=== PATIENT | female | born 1950 | race Caucasian/White ===

== ENCOUNTER → 2020-06-05 | Outpatient (CLI) | payer MEDICARE, OTHER ==
[~2020-06-05] MED LIST: ALBU90OI INH; CAL MAG ZINC +1 EACH; CITRACAL + D E1 EACH PO; DESL5 PO; FLUT110OIA INH; OMEP20ER PO; SERT50 PO; SIMV5; URSO300 PO
[2020-06-07 15:38] LABS: CORONAVIRUS (COVID19) CSH-NRL Negative (Negative)
== END ==
LOC: LAB SHORT 10:30
PROVIDERS: Physician Assistant
DX: Z20.828 Contact with and (suspected) exposure to other viral communicable diseases (principal)
CPT/HCPCS: U0003

== ENCOUNTER → 2021-07-16 | Outpatient (CLI) | payer MEDICARE, OTHER ==
[2021-07-16 13:53] LABS: Source, Urine Clean Catch
[2021-07-16 15:07] LABS: Amorphous Heavy (0-Heavy); Bacteria Many /hpf; Squamous Epithelial Cells Few /hpf (Few)
[2021-07-16 15:08] LABS: Mucus Heavy (0-Heavy)
== END ==
LOC: LAB SHORT 09:20
PROVIDERS: Physician Assistant Medical
DX: N94.9 Unspecified condition associated with female genital organs and menstrual cycle (principal)
CPT/HCPCS: 81015

== ENCOUNTER → 2021-07-30 | Outpatient (CLI) | payer MEDICARE, OTHER ==
[2021-07-31 10:39] LABS: Candida species (DNA Probe) Negative (NEGATIVE); G. vaginalis (DNA Probe) Negative (NEGATIVE); T. vaginalis (DNA Probe) Negative (NEGATIVE)
== END ==
LOC: LAB SHORT 11:00 → LAB 11:00
PROVIDERS: Family Medicine
DX: N89.8 Other specified noninflammatory disorders of vagina (principal)
CPT/HCPCS: 87480; 87510; 87660

== ENCOUNTER 2021-08-20 09:31 | Day surgery (SDC) | payer MEDICARE, OTHER ==
[~2021-08-20] VITALS: Ht 167.6 cm; Wt 61.5 kg
--- NOTE | 2021-08-20 11:54 | NUR ---
08/20/21 1154 [place] OLIVERIO SON WAS PRESENT TO HEAR DISCHARGE INSTRUCTIONS AND SPOKE WITH DR QUEVEDO
== END 2021-08-20 11:51 | disposition home or self-care (01) ==
LOC: ORSCSDS 09:31
PROVIDERS: Ophthalmology
PROC: 08RK3JZ Replacement of Left Lens with Synthetic Substitute, Percutaneous Approach (ICD-10-PCS; principal; 2021-08-20 11:00)
DX: H25.13 Age-related nuclear cataract, bilateral (principal); J45.909 Unspecified asthma, uncomplicated; E11.9 Type 2 diabetes mellitus without complications; Z79.899 Other long term (current) drug therapy; K21.9 Gastro-esophageal reflux disease without esophagitis; F03.90 Unspecified dementia, unspecified severity, without behavioral disturbance, psychotic disturbance, mood disturbance, and anxiety
CPT/HCPCS: J2001; J2250; J2704; J3010; J3301; J7040; V2632

== ENCOUNTER 2021-09-10 07:59 | Day surgery (SDC) | payer MEDICARE, OTHER ==
[~2021-09-10] VITALS: Ht 167.6 cm; Wt 62.6 kg
--- NOTE | 2021-09-10 09:51 | NUR ---
Ambulatory in Day Surgery WITH FAMILY PT HAS DEMENTIA. History, Chart, Medications and Allergies reviewed before start of procedure.Lungs clear T/O to Auscultation. Patient confirms NPO status and agrees with scheduled surgery. Pre-Op teaching done. Pt verbalizes understanding. Patient States Post-Procedure ride home has been arranged.
--- NOTE | 2021-09-10 10:20 | NUR ---
09/10/21 1020 Mary Carmen Darnell NO PREOP ANTIBIOTICS ORDERED PER .
--- NOTE | 2021-09-10 12:56 | NUR ---
REVIEWED DC INSTRUCTIONS WITH PATIENT'S DAUGHTER PRIOR TO DC. SHE VERBALIZED UNDERSTANDING OF ALL. PRINTED COPY GIVEN FOR ASSISTED LIVING FACILITY WELL. PT IV DC TIP INTACT. PT VOIDED LARGE AMOUNT PRIOR TO DC. DAUGHTER DRIVING PATIENT BACK TO [facility] - DC VIA WC.
== END 2021-09-10 23:23 | disposition home or self-care (01) ==
LOC: ORSCMMR 07:59 → ORD 09:45 → ORSCMMR 09:45
PROVIDERS: Obstetrics & Gynecology
PROC: 0UDB8ZX Extraction of Endometrium, Via Natural or Artificial Opening Endoscopic, Diagnostic (ICD-10-PCS; principal; 2021-09-10 09:45)
PROC: 0UB98ZX Excision of Uterus, Via Natural or Artificial Opening Endoscopic, Diagnostic (ICD-10-PCS; principal; 2021-09-10 09:45)
DX: N85.8 Other specified noninflammatory disorders of uterus (principal); N84.0 Polyp of corpus uteri; N88.2 Stricture and stenosis of cervix uteri; F03.90 Unspecified dementia, unspecified severity, without behavioral disturbance, psychotic disturbance, mood disturbance, and anxiety; J45.909 Unspecified asthma, uncomplicated; E78.5 Hyperlipidemia, unspecified; Z79.899 Other long term (current) drug therapy
CPT/HCPCS: 82947; 88305; A9270; J0461; J1100; J2405; J2704; J3010; J7120

== ENCOUNTER 2023-06-02 10:08 | Emergency (ER) | payer MEDICARE, OTHER ==
[~2023-06-02] VITALS: Ht 172.7 cm; Wt 63.5 kg
[2023-06-02 10:34] LABS: BASOPHILS ABSOLUTE AUTO 0.04 K/mm3 (0.00-0.23); BASOPHILS PERCENT AUTO 1 % (0-2); EOSINOPHILS ABSOLUTE AUTO 0.06 K/mm3 (0.00-0.68); EOSINOPHILS PERCENT AUTO 1 % (0-6); Hematocrit 38.2 % (33.0-51.0); Hemoglobin 12.5 g/dL (11.5-16.0); IMMATURE GRAN ABSOLUTE AUTO 0.02 K/mm3 (0.00-0.10); IMMATURE GRAN PERCENT AUTO 0 % (0-1); LYMPHOCYTES ABSOLUTE AUTO 3.08 K/mm3 (0.84-5.20); LYMPHOCYTES PERCENT AUTO 46 % (21-46); MONOCYTES ABSOLUTE AUTO 0.38 K/mm3 (0.16-1.47); MONOCYTES PERCENT AUTO 6 % (4-13); Mean Corpuscular HGB Conc 32.7 g/dL (31.5-36.5); Mean Corpuscular Volume 92 fL (80-100); Mean Platelet Volume 12.2 fL (9.1-12.4); NEUTROPHILS PERCENT AUTO 46 % (41-73); Platelet Count 204 K/mm3 (150-400); RDW Coefficient Variation 13.2 % (11.7-14.2); RDW Standard Deviation 44.3 fL (35.1-46.3); Red Blood Cell Count 4.16 M/mm3 (3.80-5.20); White Blood Cell Count 6.68 K/mm3 (4.00-11.30)
[2023-06-02 10:53] LABS: Albumin, Blood 3.1 g/dL (3.4-5.0); Albumin/Globulin Ratio 0.9 (0.8-1.8); Bilirubin, Total 0.4 mg/dL (0.1-1.0); Bun/Creatinine Ratio 25.7 (12.0-20.0); Calcium, Blood 8.5 mg/dL (8.5-10.1); Creatinine, Blood 1.01 mg/dL (0.40-1.00); Globulin, Blood 3.4 g/dL (2.2-4.0); Total Protein, Blood 6.5 g/dL (6.4-8.2)
[2023-06-02 11:03] LABS: Source, Urine Fem Cath
[2023-06-02 11:16] LABS: Appearance, Urine Clear (Clear); Bilirubin, Urine Neg (Neg); Blood, Urine Neg (Neg); Color, Urine Yellow (P-Yellow); Glucose Qualitative, Urine Neg (Neg); Ketones, Urine Neg (Neg); Leukocyte Esterase, Urine 2+ (Neg); Nitrite, Urine Neg (Neg); Protein, Urine Neg (Neg); Urobilinogen, Urine NORM (Normal)
[2023-06-02] MEDS ORDERED: ACET325 PO (11:31)
[2023-06-02] MEDS ORDERED: ALEN70 PO (11:32)
[2023-06-02] MEDS ORDERED: ESCI20 PO (11:32)
[2023-06-02] MEDS ORDERED: MAGNESIUM OXID500 MG PO (11:33)
[2023-06-02] MEDS ORDERED: LOPE2C PO (11:33)
[2023-06-02] MEDS ORDERED: Seroquel Xr50 MG PO (11:33)
[2023-06-02 11:58] LABS: Bacteria Rare /hpf; Red Blood Cells, Urine Not Seen /hpf (0-2); Squamous Epithelial Cells Rare /hpf (Few)
[2023-06-02 13:00] VITALS: BP 168/152
== END 2023-06-02 14:59 | disposition home or self-care (01) ==
LOC: ER 10:08
PROVIDERS: Emergency Medicine
DX: R56.9 Unspecified convulsions (principal); F03.90 Unspecified dementia, unspecified severity, without behavioral disturbance, psychotic disturbance, mood disturbance, and anxiety; Z88.2 Allergy status to sulfonamides; Z79.899 Other long term (current) drug therapy; Z66 Do not resuscitate
CPT/HCPCS: 51798; 70450; 71045; 80053; 81001; 85025; 87086; 93005; 93010; 96374; 96375; 99285-25; J1885; J2060

== ENCOUNTER → 2023-06-16 | Outpatient (CLI) | payer MEDICARE, OTHER ==
[~2023-06-16] MED LIST changes: +ACET325 PO; +ALEN70 PO; +ESCI20 PO; +LOPE2C PO; +MAGNESIUM OXID500 MG PO; +Seroquel Xr50 MG PO
[2023-06-17 15:50] LABS: Appearance, Urine Cloudy (Clear); Bilirubin, Urine Neg (Neg); Blood, Urine 1+ (Neg); Color, Urine Yellow (P-Yellow); Glucose Qualitative, Urine Neg (Neg); Ketones, Urine Neg (Neg); Leukocyte Esterase, Urine 3+ (Neg); Nitrite, Urine Pos (Neg); Protein, Urine 2+ (Neg); Specific Gravity, Urine 1.015 (1.003-1.022); Urobilinogen, Urine NORM (Normal)
[2023-06-17 15:59] LABS: Amorphous Heavy (0-Heavy); Bacteria Many /hpf; Squamous Epithelial Cells Few /hpf (Few); Transitional Epithelial Cells Rare /hpf (0-Rare); White Blood Cells, Urine 50-100 /hpf (0-5)
== END | disposition home or self-care (01) ==
LOC: LAB 13:00 → LAB SHORT 13:00
PROVIDERS: Family Medicine
DX: N39.0 Urinary tract infection, site not specified (principal); E78.5 Hyperlipidemia, unspecified; F03.90 Unspecified dementia, unspecified severity, without behavioral disturbance, psychotic disturbance, mood disturbance, and anxiety; F33.8 Other recurrent depressive disorders; F41.9 Anxiety disorder, unspecified; K21.9 Gastro-esophageal reflux disease without esophagitis; L29.2 Pruritus vulvae; R73.09 Other abnormal glucose
CPT/HCPCS: 81001; 87077; 87086; 87186

== ENCOUNTER 2023-06-20 20:37 | Emergency (ER) | payer OTHER, MEDICARE ==
[~2023-06-20] VITALS: Ht 167.6 cm; Wt 68.0 kg
[2023-06-20 20:40] VITALS: BP 144/84
== END 2023-06-20 21:30 | disposition home or self-care (01) ==
LOC: ER 20:37
DX: Z04.3 Encounter for examination and observation following other accident (principal); Z88.1 Allergy status to other antibiotic agents; Z88.2 Allergy status to sulfonamides; Z79.899 Other long term (current) drug therapy; W18.30XA Fall on same level, unspecified, initial encounter
CPT/HCPCS: 99282

== ENCOUNTER 2023-12-20 13:07 | Emergency (ER) | payer MEDICARE, OTHER ==
[~2023-12-20] VITALS: Ht 160 cm; Wt 52.2 kg
[2023-12-20 15:06] LABS: BASOPHILS ABSOLUTE AUTO 0.02 K/mm3 (0.00-0.23); BASOPHILS PERCENT AUTO 0 % (0-2); EOSINOPHILS ABSOLUTE AUTO 0.03 K/mm3 (0.00-0.68); EOSINOPHILS PERCENT AUTO 0 % (0-6); Hematocrit 38.1 % (33.0-51.0); Hemoglobin 12.8 g/dL (11.5-16.0); IMMATURE GRAN ABSOLUTE AUTO 0.03 K/mm3 (0.00-0.10); IMMATURE GRAN PERCENT AUTO 0 % (0-1); LYMPHOCYTES ABSOLUTE AUTO 1.24 K/mm3 (0.84-5.20); LYMPHOCYTES PERCENT AUTO 16 % (21-46); MONOCYTES ABSOLUTE AUTO 0.48 K/mm3 (0.16-1.47); MONOCYTES PERCENT AUTO 6 % (4-13); Mean Corpuscular HGB 29.7 pg (26.0-34.0); Mean Corpuscular HGB Conc 33.6 g/dL (31.5-36.5); Mean Corpuscular Volume 88 fL (80-100); Mean Platelet Volume 12.1 fL (9.1-12.4); NEUTROPHILS ABSOLUTE AUTO 6.03 K/mm3 (1.96-9.15); NEUTROPHILS PERCENT AUTO 77 % (41-73); Platelet Count 191 K/mm3 (150-400); RDW Coefficient Variation 13.3 % (11.7-14.2); RDW Standard Deviation 43.8 fL (35.1-46.3); Red Blood Cell Count 4.31 M/mm3 (3.80-5.20); White Blood Cell Count 7.83 K/mm3 (4.00-11.30)
[2023-12-20 15:15] VITALS: BP 156/74
[2023-12-20 15:21] LABS: Albumin, Blood 3.3 g/dL (3.4-5.0); Bilirubin, Total 0.6 mg/dL (0.1-1.0); Bun/Creatinine Ratio 15.7 (12.0-20.0); Calcium, Blood 8.7 mg/dL (8.5-10.1); Creatinine, Blood 0.96 mg/dL (0.40-1.00); Globulin, Blood 3.4 g/dL (2.2-4.0); Potassium, Blood 3.8 mmol/L (3.5-5.5); Total Protein, Blood 6.7 g/dL (6.4-8.2)
[2023-12-20 15:22] LABS: Source, Urine Straight Cath
[2023-12-20] MEDS ORDERED: ALPR.25 (15:40)
[2023-12-20 15:41] LABS: Bacteria Many /hpf; Squamous Epithelial Cells Many /hpf (Few); White Blood Cells, Urine TNTC /hpf (0-5)
[2023-12-20] MEDS ORDERED: ARNUITY ELLIP200 MCG IH (15:41)
[2023-12-20 15:42] LABS: Transitional Epithelial Cells Many /hpf (0-Rare)
[2023-12-20] MEDS ORDERED: DESL5 PO (15:42)
[2023-12-20] MEDS ORDERED: SENN187 PO (15:42)
[2023-12-20] MEDS ORDERED: FLUT.05NI (15:42)
[2023-12-20] MEDS ORDERED: AMOCLA875 PO (16:36)
[2023-12-20] MEDS ORDERED: Amoxicillin/Clavulanate K 875 MG Tab PO ONE (16:40)
== END 2023-12-20 17:10 | disposition home or self-care (01) ==
LOC: ER 13:07
PROVIDERS: Emergency Medicine
DX: F03.90 Unspecified dementia, unspecified severity, without behavioral disturbance, psychotic disturbance, mood disturbance, and anxiety (principal); Z88.8 Allergy status to other drugs, medicaments and biological substances; Z88.2 Allergy status to sulfonamides; Z79.899 Other long term (current) drug therapy
CPT/HCPCS: 80053; 81015; 85025; 87077; 87086; 87186; 93005; 93010; 99285-25; A9270

== ENCOUNTER → 2024-04-07 | Outpatient (CLI) | payer MEDICARE, OTHER ==
[~2024-04-07] MED LIST changes: +ALPR.25; +AMOCLA875 PO; +ARNUITY ELLIP200 MCG IH; +FLUT.05NI; +SENN187 PO
[2024-04-08 09:31] LABS: Source, Urine Voided
[2024-04-08 10:43] LABS: Appearance, Urine Clear (Clear); Bilirubin, Urine Neg (Neg); Blood, Urine 1+ (Neg); Color, Urine Yellow (P-Yellow); Glucose Qualitative, Urine 4+ (Neg); Ketones, Urine Neg (Neg); Leukocyte Esterase, Urine 1+ (Neg); Nitrite, Urine Neg (Neg); Protein, Urine 2+ (Neg); Specific Gravity, Urine 1.015 (1.003-1.022); Urobilinogen, Urine NORM (Normal)
[2024-04-08 11:00] LABS: Bacteria Rare /hpf; Squamous Epithelial Cells Few /hpf (Few)
== END ==
LOC: LAB 09:26 → LAB SHORT 09:26
PROVIDERS: Family Medicine
DX: N39.0 Urinary tract infection, site not specified (principal)
CPT/HCPCS: 81001; 87077; 87086; 87186

== ENCOUNTER 2024-06-07 16:46 | Emergency (ER) | payer MEDICARE, OTHER ==
[~2024-06-07] VITALS: Ht 165.1 cm; Wt 63.5 kg
[2024-06-07] MEDS ORDERED: levETIRAcetam 500 MG in NS 100 ML IV ONE (17:55)
[2024-06-07 17:56] LABS: Source, Urine Clean Catch
[2024-06-07 18:12] LABS: BASOPHILS ABSOLUTE AUTO 0.02 K/mm3 (0.00-0.23); BASOPHILS PERCENT AUTO 0 % (0-2); EOSINOPHILS ABSOLUTE AUTO 0.15 K/mm3 (0.00-0.68); EOSINOPHILS PERCENT AUTO 2 % (0-6); Hematocrit 40.2 % (33.0-51.0); Hemoglobin 13.3 g/dL (11.5-16.0); IMMATURE GRAN ABSOLUTE AUTO 0.05 K/mm3 (0.00-0.10); IMMATURE GRAN PERCENT AUTO 1 % (0-1); LYMPHOCYTES ABSOLUTE AUTO 1.47 K/mm3 (0.84-5.20); LYMPHOCYTES PERCENT AUTO 22 % (21-46); MONOCYTES ABSOLUTE AUTO 0.52 K/mm3 (0.16-1.47); MONOCYTES PERCENT AUTO 8 % (4-13); Mean Corpuscular HGB Conc 33.1 g/dL (31.5-36.5); Mean Corpuscular Volume 88 fL (80-100); NEUTROPHILS PERCENT AUTO 68 % (41-73); Platelet Count 228 K/mm3 (150-400); RDW Coefficient Variation 14.1 % (11.7-14.2); RDW Standard Deviation 45.2 fL (35.1-46.3); Red Blood Cell Count 4.58 M/mm3 (3.80-5.20); White Blood Cell Count 6.81 K/mm3 (4.00-11.30)
[2024-06-07 18:17] LABS: Albumin, Blood 3.6 g/dL (3.4-5.0); Bilirubin, Total 0.8 mg/dL (0.1-1.0); Bun/Creatinine Ratio 22.2 (12.0-20.0); Calcium, Blood 9.8 mg/dL (8.5-10.1); Creatinine, Blood 0.9 mg/dL (0.40-1.00); Globulin, Blood 3.7 g/dL (2.2-4.0); Magnesium, Blood 2.4 mg/dL (1.6-2.4); Potassium, Blood 4.1 mmol/L (3.5-5.5); Total Protein, Blood 7.3 g/dL (6.4-8.2)
[2024-06-07 18:17] LABS: Appearance, Urine Cloudy (Clear); Bilirubin, Urine Neg (Neg); Blood, Urine 2+ (Neg); Color, Urine Yellow (P-Yellow); Glucose Qualitative, Urine Neg (Neg); Ketones, Urine Neg (Neg); Leukocyte Esterase, Urine 3+ (Neg); Nitrite, Urine Neg (Neg); Protein, Urine 2+ (Neg); Urobilinogen, Urine NORM (Normal)
[2024-06-07 18:19] LABS: Bacteria Mod /hpf; Squamous Epithelial Cells Many /hpf (Few); Transitional Epithelial Cells Rare /hpf (0-Rare)
[2024-06-07 18:20] LABS: Amorphous Light (0-Heavy); Red Blood Cells, Urine 0-2 /hpf (0-2)
[2024-06-07 18:26] LABS: U Amphetamine Screen Not Detected; U Barbituate Screen Not Detected; U Benzodiazapine Screen Not Detected; U Buprenorphine Screen Not Detected; U Cannabinoids Screen Not Detected; U Cocaine Screen Not Detected; U Methadone Screen Not Detected; U Methamphetamine Screen Not Detected; U Opiates Screen Not Detected; U Oxycodone Screen DETECTED; U Phencyclidine Screen Not Detected
[2024-06-07] MEDS ORDERED: Haloperidol2 MG PO (18:30)
[2024-06-07] MEDS ORDERED: HALO2 PO (18:30)
[2024-06-07] MEDS ORDERED: Ketoconazole15 GM TOP (18:32)
[2024-06-07] MEDS ORDERED: MORP20L PO (18:33)
[2024-06-07] MEDS ORDERED: OXYC5 PO (18:34)
[2024-06-07] MEDS ORDERED: CefTRIAXone Sodium 1,000 MG in NS 100 ML IV ONE (18:35)
[2024-06-07 23:00] VITALS: BP 120/82
[2024-06-08] MEDS ORDERED: CEPH500 PO (16:14)
== END 2024-06-07 23:10 | disposition home or self-care (01) ==
LOC: ER 16:46
PROVIDERS: Student in an Organized Health Care Education/Training Program
DX: S06.5XAA Traumatic subdural hemorrhage with loss of consciousness status unknown, initial encounter (principal); S42.032A Displaced fracture of lateral end of left clavicle, initial encounter for closed fracture; E78.5 Hyperlipidemia, unspecified; W19.XXXA Unspecified fall, initial encounter; Z79.51 Long term (current) use of inhaled steroids; Z79.899 Other long term (current) drug therapy; Z88.2 Allergy status to sulfonamides; Z88.1 Allergy status to other antibiotic agents
CPT/HCPCS: 70450; 71045; 72125; 72170; 80053; 81001; 83735; 85025; 87086; 93005; 93010; 96365; 96375; 99285-25; J0696; J1953